=== PATIENT | male | born 1975 | race Caucasian/White ===

== ENCOUNTER 2018-10-05 10:37 | Emergency (ER) | payer OTHER ==
[~2018-10-05] VITALS: Ht 193 cm; Wt 106.6 kg
[2018-10-05] MEDS ORDERED: IBUPROFEN 800800 M1 PO (10:49)
[2018-10-05] MEDS ORDERED: RELPAX20 MG PO (10:49)
[2018-10-05 11:26] LABS: ABSOLUTE BASOPHILS 0.1 thou/uL (0.0-0.2); ABSOLUTE EOSINOPHILS 0.2 thou/uL (0.0-0.7); ABSOLUTE LYMPHOCYTES 1.5 thou/uL (0.8-5.3); ABSOLUTE MONOCYTES 1.4 thou/uL (0.0-1.2); ABSOLUTE NEUTROPHILS 11.1 thou/uL (1.6-8.1); BASOPHILS 0.4 %; EOSINOPHILS 1.4 %; HEMATOCRIT 52.2 % (42.0-52.0); HEMOGLOBIN 17.6 gm/dL (14.0-18.0); LYMPHOCYTES 10.3 %; MCH 30.2 pg (26.0-34.0); MCHC 33.8 g/dL (28.0-37.0); MCV 89.5 fL (80.0-100.0); MONOCYTES 9.6 %; MPV 9.2 fl. (7.2-11.1); NUCLEATED RBCS 0 /100WBC; PLATELET COUNT* 220 thou/uL (150-400); POLYS 78.3 %; RBC 5.83 mil/uL (4.50-6.00); RDW-CV 13.4 % (10.5-14.5); WBC 14.2 thou/uL (4.0-11.0)
[2018-10-05 11:31] LABS: CALCIUM 9.4 mg/dL (8.5-10.1); POTASSIUM 3.9 mmol/L (3.5-5.1)
[2018-10-05 11:36] LABS: ALBUMIN 3.5 g/dL (3.4-5.0); TOTAL BILIRUBIN 0.9 mg/dL (<0.1-1.0); TOTAL PROTEIN 7.8 g/dL (6.4-8.2)
[2018-10-05] MEDS ORDERED: CLEOCIN HCL150 MG PO (12:43)
[2018-10-05] MEDS ORDERED: HYDROCODON-ACE1 EAC7 PO (12:44)
[2018-10-05 13:26] VITALS: BP 133/95
== END 2018-10-05 13:26 | disposition home or self-care (01) ==
LOC: M.ERS 10:37
PROVIDERS: Nurse Practitioner Psychiatric/Mental Health
DX: K04.7 Periapical abscess without sinus (principal); R59.1 Generalized enlarged lymph nodes; F17.210 Nicotine dependence, cigarettes, uncomplicated